=== PATIENT | male | born 1945 | race Caucasian/White ===

== ENCOUNTER → 2017-07-08 | Outpatient (CLI) | payer OTHER ==
[~2017-07-08] MED LIST: CHOL100027 PO; FAMO-103 PO; FISHOIL PO; FLUT50SP14 NAE; LORA10TA6 PO; METF500T PO; MULT-190 PO; [UNRECOGNIZED DRUG - REMARK] PO; osteo biflex PO
[2017-07-08 14:06] LABS: BLOOD UREA NITROGEN 17 mg/dl (7-18); CALCIUM 9.3 mg/dl (8.5-10.1); CARBON DIOXIDE 27 mmol/L (21-32); CHOLESTEROL 175 mg/dl (0-200); CREATININE 0.85 mg/dl (0.60-1.40); GLUCOSE 105 mg/dl (70-99); POTASSIUM 4.2 mmol/L (3.5-5.1); SODIUM 139 mmol/L (136-145); URIC ACID 7.9 mg/dl (2.6-7.2)
[2017-07-08 14:10] LABS: HEMOGLOBIN A1C 6.1 % (4.5-5.6)
== END | disposition home or self-care (01) ==
LOC: C.LABPVFM 09:40
PROVIDERS: ATTEND Nurse Practitioner
DX: E11.9 Type 2 diabetes mellitus without complications (principal); E78.1 Pure hyperglyceridemia; M10.9 Gout, unspecified; E78.5 Hyperlipidemia, unspecified